=== PATIENT | female | born 1975 | race Caucasian/White ===

== ENCOUNTER 2016-03-09 13:23 | Day surgery (SDC) | payer BC ==
[~2016-03-09] VITALS: Ht 157.5 cm; Wt 74.6 kg
[~2016-03-09 13:23] MED LIST: NO MEDS.
[2016-03-09] MEDS ORDERED: FAMOTIDINE (15:29)
[2016-03-09] MEDS ORDERED: PANT40TA4 PO (15:29)
[2016-03-09 15:40] VITALS: Ht 157.5 cm; Wt 74.6 kg
[2016-03-09] MEDS ORDERED: PROPOFOL 20 ML ONE (15:44)
[2016-03-09 16:04] VITALS: BP 137/81; PULSE 79; RESP 16
[2016-03-09 17:00] VITALS: BP 127/75; PULSE 76; RESP 18
--- NOTE | 2016-03-10 09:00 | GILP ---
DATE OF PROCEDURE: 03/09/2016 NAME OF PROCEDURE: Esophagogastroduodenoscopy with biopsies. SURGEON: Sudeep Pizarro MD. PREOPERATIVE DIAGNOSIS: POSTOPERATIVE DIAGNOSIS: DESCRIPTION OF PROCEDURE: BRIEF HISTORY AND INDICATIONS: The patient is being evaluated for persistent dyspepsia and abdomina l pain. PREMEDICATION: Monitored anesthesia care by anesthesiologist. INSTRUMENT USED: Olympus panendoscope. TECHNIQUE: After informed consent, with the patient/relatives understanding the procedure, its indic ations, potential risks and complications, including but not limited to: allergic reaction, bleeding , perforation or infection, and after all pertinent questions were answered to the patients satisfac tion, the patient/relatives signed witnessed informed consent. Following this, premedication was administered slowly IV push under careful cardiovascular and respi ratory monitoring with pulse oximetry, automatic blood pressure and equipment monitor phototypesetting. Once the sedative effect was achieved the patient was place in the left lateral decubitus, the panen doscope was introduced and advanced under visual control. Careful examination of the upper gastrointestinal tract, both on insertion as well as withdrawal of the instrument disclosed the following findings: ESOPHAGUS: The mucosa of the entire esophagus appears within normal limits. There is no evidence of esophagitis, varices, neoplasm or stricture. No hiatal hernia identified. STOMACH: Upon entrance to the stomach air was insufflated, the gastric ramos distended normally. The mucosa of the fundus, body and antrum of the stomach was carefully examined, it showed erythema and edema of the mucosa of a mild degree. Biopsies were obtained to rule out H. pylori infection. PYLORUS: The pylorus appears patent and within normal limits, with no evidence of gastric outlet obs truction. DUODENUM: The duodenal mucosa was carefully examined in the duodenal bulb as well as the second port ion of the duodenum and appears unremarkable with no evidence of duodenitis, ulcer or neoplasm. The instrument was then withdrawn, the patient tolerated the procedure well and was transfer out of the endoscopy suite awake, and in good condition to continue recovery under observation IMPRESSION: Moderate gastritis, rule out H. pylori infection, biopsies obtained. PLAN: Continue PPI therapy. Pathology will be reviewed as soon as available. Further recommendati on will depend on patient's clinical course as well as review of biopsies. Dictated By: SUDEEP PIZARRO MS/KULDEEP Conf#: [id number] DID#: [id number] CC: Sudeep Pizarro;*End*
== END 2016-03-09 18:49 | disposition home or self-care (01) ==
LOC: SDS 13:23 → GIL 13:25 → SDS 18:49
PROVIDERS: ATTEND Internal Medicine Gastroenterology
DX: K29.30 Chronic superficial gastritis without bleeding (principal)
CPT/HCPCS: 43239; 84703; 88305; 88312; Z7610

== ENCOUNTER 2016-10-02 11:40 | Day surgery (SDC) | payer BC ==
[~2016-10-02] VITALS: Ht 157.5 cm; Wt 76.6 kg
[~2016-10-02 11:40] MED LIST changes: +FAMOTIDINE; -NO MEDS.; +PANT40TA4 PO
[2016-10-02 12:04] VITALS: Ht 157.5 cm; Wt 76.6 kg
[2016-10-02 12:51] VITALS: BP 126/83; PULSE 72; RESP 13
[2016-10-02] MEDS ORDERED: PROPOFOL 60 ML ONE (14:10)
[2016-10-02] MEDS ORDERED: LIDOCAINE 2% (SDV) 5 ML INJ ONE (14:11)
--- NOTE | 2016-10-02 14:36 | OPR ---
Date/Time of Note Date/Time of Note DATE: 10/02/16 TIME: 14:35 Operative Report Preoperative Diagnosis Colorectal cancer screening Postoperative Diagnosis Impression: Normal colonic mucosa to cecum Moderate-sized internal hemorrhoids Plan: Follow-up as an outpatient Annual Hemoccult stool testing Screening colonoscopy in 10 years . Operation/Procedure Performed Colonoscopy to cecum Surgeon: SUDEEP LANGSTON MD Anesthesia: MAC Estimated Blood Loss: none Specimens None Grafts/Implants None Complications: None SUDEEP LANGSTON MD Oct 02, 2016 14:36
[2016-10-02 14:45] VITALS: BP 112/59; RESP 14
--- NOTE | 2016-10-06 09:17 | GILP ---
DATE OF PROCEDURE: 10/02/2016 PROCEDURE: Colonoscopy to the cecum. HISTORY AND INDICATIONS: Patient is here for colorectal cancer screening. PREMEDICATION: Monitored anesthesia care by anesthesiologist. INSTRUMENT USED: Olympus colonoscope. PREPARATION: Adequate. TECHNIQUE: After informed consent, with the patient/relatives understanding the procedure, its indications potential risks and complications, including but not limited to: Allergic reaction, bleeding, perforation, infection, missed lesions and after all pertinent questions were answered to the patient's satisfaction, the patient/relatives signed the witnessed informed consent. Following this, premedication was administered slowly IV push by under careful cardiovascular and respiratory monitoring with pulse oximetry, automatic blood pressure and cardiac monitor. Once the sedative effect was achieved, the patient was placed in the left lateral decubitus position, digital rectal examination was performed. The colonoscope was then introduced and advanced under visual control throughout all segments of the colon including: The rectum, sigmoid, descending colon, splenic flexure, transverse colon, hepatic flexure, ascending colon and finally reaching the cecum which was clearly identified by transillumination, finger indentation and the ileocecal valve. Careful examination of the mucosa of the lower gastrointestinal tract both on insertion as well as withdrawal of the instrument disclosed the following findings: RECTAL EXAMINATION: No evidence of perirectal disease, no masses. COLONIC MUCOSA: The mucosa is unremarkable throughout. The ileocecal valve was clearly identified and appeared unremarkable. I did not elicit any . There is no evidence of inflammatory changes, diverticular formation, polyps or other neoplasms, vascular malformation, or any other abnormality. The instrument was then withdrawn, re-examined the mucosa in detail. No additional abnormalities are noted, with the exception of moderate-size internal hemorrhoids. The patient tolerated the procedure well and was transferred out of the Endoscopy Suite awake and in good condition to continue recovery under observation. IMPRESSION: 1. Normal colonic mucosa to cecum. 2. Moderate-size internal hemorrhoids. RECOMMENDATIONS: Annual Hemoccult stool testing. Screening colonoscopy in 10 years. Patient to follow up. Dictated By: Solange Pizarro MD /millicent/ellen /Document#: [id number] CC: Solange Pizarro MD;*EndCC*
== END 2016-10-02 15:00 | disposition home or self-care (01) ==
LOC: GIL 11:40
PROVIDERS: ATTEND Internal Medicine Gastroenterology
DX: R19.4 Change in bowel habit (principal); K64.8 Other hemorrhoids
CPT/HCPCS: 45378; 84703; Z7610